=== PATIENT | male | born 1985 | race Caucasian/White ===

== ENCOUNTER 2023-11-08 16:08 | Emergency (ER) | payer MEDICAID, OTHER ==
[~2023-11-08] VITALS: Ht 177.8 cm; Wt 71.8 kg
[2023-11-08] MEDS: SODIUM CHLORIDE 0.9% 1,000 ML IVB ONE (17:00)
[2023-11-08] MEDS: KETOROLAC TROMETH 30 MG/ML 1ML VIAL IV ONE (17:00)
[2023-11-08 17:03] LABS: Urine Bacteria None Seen /hpf (None Seen)
[2023-11-08 17:15] LABS: Urine Blood Negative /uL (Negative); Urine Clarity Clear (Clear); Urine Color Yellow (Yellow); Urine Protein, UAD Negative (Negative); Urine Specific Gravity 1.026 (1.001-1.035); Urine Urobilinogen Normal (Negative); Urine WBC <1 /hpf (0 - 3); Urine pH 5.5 (5.0-9.0)
[2023-11-08 17:59] LABS: Basophils # (auto) 0 10 ^3/uL (0-0.2); Basophils % (auto) 0.7 % (0.0-2.0); Eosinophils # (auto) 0 10 ^3/uL (0-0.8); Eosinophils % (auto) 0.6 % (0.0-7.0); Hematocrit 47.5 % (41.0-53.0); Hemoglobin 15.3 g/dL (13.5-17.5); Lymphocytes # (auto) 1.9 10 ^3/uL (0.4-5.4); Lymphocytes % (auto) 28.3 % (10.0-50.0); Mean Corpuscular Hemoglobin 30.2 pg (28.0-32.0); Mean Corpuscular Hgb Conc. 32.1 g/dL (32.0-36.0); Monocytes # (auto) 0.5 10 ^3/uL (0-1.3); Monocytes % (auto) 7.4 % (0.0-12.0); Neutrophils # (auto) 4.1 10 ^3/uL (1.6-8.6); Red Blood Cells 5.06 10^6/uL (4.5-5.90); White Blood Cell 6.5 10^3/uL (4.4-10.8)
[2023-11-08 18:11] LABS: Alanine Aminotransferase 22 U/L (7-40); Albumin 4.5 g/dL (3.2-4.8); Alkaline Phosphatase 47 U/L (46-116); Anion Gap 4 (5-15); Aspartate Aminotransferase 16 U/L (13-40); Bilirubin, Total 0.5 mg/dL (0.2-1.0); Blood Urea Nitrogen 20 mg/dL (9-23); Calcium 9.8 mg/dL (8.7-10.4); Carbon Dioxide 28 mmol/L (20-30); Chloride 106 mmol/L (98-107); Glucose 94 mg/dL (74-106); Lipase 38 U/L (12-53); Potassium 4.4 mmol/L (3.5-5.1); Sodium 138 mmol/L (136-145); Total Protein 7.4 g/dL (5.7-8.2)
[2023-11-08 18:15] VITALS: BP 164/98; PULSE 79; RESP 18; TEMP 98.9; O2SAT 98
== END 2023-11-08 18:50 | disposition left against medical advice (07) ==
LOC: ER 16:08
DX: R10.9 Unspecified abdominal pain (principal); E78.5 Hyperlipidemia, unspecified; Z98.890 Other specified postprocedural states
CPT/HCPCS: 36415; 80053; 81001; 83690; 85025

== ENCOUNTER 2024-07-21 17:49 | Emergency (ER) | payer MEDICAID ==
[~2024-07-21] VITALS: Ht 177.8 cm; Wt 73.1 kg
[2024-07-21 18:05] VITALS: TEMP 98
[2024-07-21 18:28] LABS: Basophils # (auto) 0 10 ^3/uL (0-0.2); Basophils % (auto) 0.4 % (0.0-2.0); Eosinophils # (auto) 0 10 ^3/uL (0-0.8); Hematocrit 47.3 % (41.0-53.0); Hemoglobin 16.3 g/dL (13.5-17.5); Lymphocytes # (auto) 2.1 10 ^3/uL (0.4-5.4); Lymphocytes % (auto) 21.2 % (10.0-50.0); Mean Corpuscular Hemoglobin 31.1 pg (28.0-32.0); Mean Corpuscular Hgb Conc. 34.3 g/dL (32.0-36.0); Mean Corpuscular Volume 90.5 fL (80.0-100.0); Monocytes # (auto) 0.4 10 ^3/uL (0-1.3); Monocytes % (auto) 4.2 % (0.0-12.0); Neutrophils # (auto) 7.3 10 ^3/uL (1.6-8.6); Neutrophils % (auto) 74.2 % (37.0-80.0); Nucleated Red Blood Cells % 0.1 %; Platelet Count (auto) 294 10^3/uL (140-450); Red Blood Cells 5.23 10^6/uL (4.5-5.90); Red Cell Distribution Width 14.4 % (11.8-14.3); White Blood Cell 9.8 10^3/uL (4.4-10.8)
[2024-07-21 18:39] LABS: Alkaline Phosphatase 58 U/L (46-116); Anion Gap 11 (5-15); Aspartate Aminotransferase 30 U/L (13-40); BUN/Creatinine Ratio 14.2 (10.0-20.0); Bilirubin, Total 0.7 mg/dL (0.2-1.0); Blood Urea Nitrogen 16 mg/dL (9-23); Carbon Dioxide 23 mmol/L (20-31); Chloride 101 mmol/L (98-107); Potassium 3.6 mmol/L (3.5-5.1)
[2024-07-21 18:45] LABS: Alanine Aminotransferase 50 U/L (7-40); Albumin 5.4 g/dL (3.2-4.8); Calcium 10.4 mg/dL (8.7-10.4); Glucose 154 mg/dL (74-106); Sodium 135 mmol/L (136-145); Total Protein 8.2 g/dL (5.7-8.2)
--- NOTE | 2024-07-21 19:12 | ED.PDOC ---
HPI Comments Thong Marquis is a 39-year-old male patient who presents to the ED with chief complaint of intermittent dull pressure-like retrosternal chest pain which started approximately two weeks ago in variable functional class (he does say that while he rest he does not have any symptoms, but the chest pain shows up randomly it respectively of the functional class) associated with palpitations, dyspnea, tremors and dizziness. Symptoms got worse after he drank six beers yesterday, prompting his visit today to the ED. denies syncope, nausea, vomiting, diarrhea, bleeding, dysuria, fever, chills, recent upper respiratory infection, recent travel, sick contacts and motor or sensory deficits. Past medical history: Dyslipidemia treated with nonpharmacological measures Surgical history: Denies Family history: Father of NH at age of 70 Social history: Lives in [place] alone, next of kin mother. Occasional binge alcohol consumption (he says he drinks normally 2 times a week and for each event he drinks six beers). Denies current tobacco and other drug abuse. Allergies: Denies Home medication: Multivitamins and fish oil. Chief Complaint: Palpitations Time Seen by MD: 18:30 Primary Care Provider: eren Allergies: Coded Allergies: NO KNOWN ALLERGIES (Unverified , 11/08/23) Mode of Arrival: Ambulatory Past Medical History PAST MEDICAL HISTORY: High Lipids Family History Family History: Reviewed,noncontributory to illness, Family hx of heart brionna Social History Smoker: Non-Smoker Alcohol: Denies ETOH Use Drugs: Denies Drug Use Lives In: Home Physical Exam General Appearance: No Apparent Distress, Normal HEENT: Normal ENT Inspection, Pharynx Normal, TMs Normal Neck: Full Range of Motion, Non-Tender, Normal, Normal Inspection Respiratory: Chest Non-Tender, Lungs Clear, No Accessory Muscle Use, No Respiratory Distress, Normal Breath Sounds Cardiovascular: No Edema, No JVD, No Murmur, No Gallop, Normal Peripheral Pulses, Regular Rate/Rhythm Breast Exam: Deferred Gastrointestinal: No Organomegaly, Non Tender, No Pulsatile Mass, Normal Bowel Sounds, Soft Genitalia: Deferred Pelvic: Deferred Rectal: Deferred Extremities: No calf tenderness, Normal capillary refill, Normal inspection, Normal range of motion, Non-tender, No pedal edema Neurologic: Alert, development mgr II-XII nml as Tested, No Motor Deficits, Normal Affect, Normal Mood, No Sensory Deficits Cerebellar Function: Normal Reflexes: Normal Skin: Dry, Normal Color, Warm Lymphatic: No Adenopathy EKG EKG : Comments First EKG shows sinus tachycardia at 110 beats per minute, 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 Was a procedure done?: No CP Differential Dx Differential Diagnosis: A-fib, A-Flutter, Angina, Electrolyte Disorder, Heart Failure, Hyperthyroidism, NH, Pulmonary Embolus, Renal Failure, V-Fib, V-Tach X-Ray, Labs, Meds, VS Vital Signs Date Time Temp Pulse Resp B/P (MAP) Pulse Ox O2 Delivery O2 Flow Rate FiO2 07/21/24 18:57 79 07/21/24 18:05 98.0 119 17 160/97 (118) 99 07/21/24 17:56 118 Lab Test 07/21/24 21:29 07/21/24 20:41 07/21/24 19:16 07/21/24 18:00 Range/Units Urine Color Pending Urine Clarity Pending Urine pH Pending Urine Specific [place] Pending Urine Protein Pending Urine Ketones Pending Urine Blood Pending Urine Nitrite Pending Urine Bilirubin Pending Urine Urobilinogen Pending Urine Leukocyte Esterase Pending Urine RBC Pending Urine Microscopic WBC Pending Urine Squamous Epithelial Cells Pending Urine Bacteria Pending Urine Glucose Pending Urine Opiates Screen Pending Urine Fentanyl Screen Pending Urine Barbiturates Screen Pending Urine Phencyclidine Screen Pending Urine Amphetamines Screen Pending Urine Benzodiazepines Screen Pending Urine Cocaine Screen Pending Urine Cannabinoids Screen Pending Lactic Acid Level 1.4 2.1 *H 0.4-2.0 mmol/L Troponin I High Sensitivity < 3 L < 3 L < 3 L </=54 ng/L Prothrombin Time 10.5 9.3-11.8 sec Prothrombin Time INR 0.99 0.9-1.15 Activated Partial Thromboplast Time 23.0 L 24.5-34.5 SEC D-Dimer, Quantitative 0.31 0.0-0.49 mg/L FEU Ammonia < 10 L 11-32 umol/L White Blood Count 9.8 4.4-10.8 10^3/uL Red Blood Count 5.23 4.5-5.90 10^6/uL Hemoglobin 16.3 13.5-17.5 g/dL Hematocrit 47.3 41.0-53.0 % Mean Corpuscular Volume 90.5 80.0-100.0 fL Mean Corpuscular Hemoglobin 31.1 28.0-32.0 pg Mean Corpuscular Hemoglobin Concent 34.3 32.0-36.0 g/dL Red Cell Distribution Width 14.4 H 11.8-14.3 % Platelet Count 294 140-450 10^3/uL Mean Platelet Volume 7.3 6.9-10.8 fL Neutrophils (%) (Auto) 74.2 37.0-80.0 % Lymphocytes (%) (Auto) 21.2 10.0-50.0 % Monocytes (%) (Auto) 4.2 0.0-12.0 % Eosinophils (%) (Auto) 0.0 0.0-7.0 % Basophils (%) (Auto) 0.4 0.0-2.0 % Neutrophils # (Auto) 7.3 1.6-8.6 10 ^3/uL Lymphocytes # (Auto) 2.1 0.4-5.4 10 ^3/uL Monocytes # (Auto) 0.4 0-1.3 10 ^3/uL Eosinophils # (Auto) 0 0-0.8 10 ^3/uL Basophils # (Auto) 0 0-0.2 10 ^3/uL Nucleated Red Blood Cells 0.1 % Sodium Level 135 L 136-145 mmol/L Potassium Level 3.6 3.5-5.1 mmol/L Chloride Level 101 98-107 mmol/L Carbon Dioxide Level 23 20-31 mmol/L Anion Gap 11 5-15 Blood Urea Nitrogen 16 9-23 mg/dL Creatinine 1.13 0.700-1.30 mg/dL Glomerular Filtration Rate Calc 84 >90 mL/min BUN/Creatinine Ratio 14.2 10.0-20.0 Serum Glucose 154 H 74-106 mg/dL POC Glucose 154 H 70-106 mg/dl Calcium Level 10.4 8.7-10.4 mg/dL Phosphorus Level 4.0 2.4-5.1 mg/dL Magnesium Level 2.3 1.6-2.6 mg/dL Total Bilirubin 0.7 0.2-1.0 mg/dL Aspartate Amino Transferase (AST) 30 13-40 U/L Alanine Aminotransferase (ALT) 50 H 7-40 U/L Alkaline Phosphatase 58 46-116 U/L Total Protein 8.2 5.7-8.2 g/dL Albumin 5.4 H 3.2-4.8 g/dL Thyroid Stimulating Hormone (TSH) 0.47 L 0.55-4.78 uIU/mL Free Thyroxine (T4) Calculated 1.18 0.89-1.76 ng/dL Free Triiodothyronine (T3) pg/mL 3.19 2.3-4.2 pg/mL X-Ray, Labs, Meds, VS Comment Reviewed laboratory workup (hyperglycemia on 154, lactic acid 2.1 with repeat 1.4, TSH 0.47 with normal free T3 and T4, D-dimer was negative, troponin <3 x3, ALT 50), chest x-ray showed right base atelectasis. Time of 1ST Reevaluation: 21:35 Reevaluation 1ST: Improved Patient Education/Counseling: Diagnosis, Treatment, Prognosis, Need For Follow Up Family Education/Counseling: Diagnosis, Treatment, Prognosis, Need For Follow Up Departure 1 Departure Time of Disposition: 21:35 Impression: Primary Impression: Palpitations Disposition: 01 HOME / SELF CARE / HOMELESS Condition: Stable Additional Instructions: Reviewed vital signs, laboratory work up, chest x-ray and EKG. Pending urine analysis. Abnormal laboratory workup includes hyperglycemia (154), lactic acid (2.1 with repeat 1.4), TSH (0.47 with normal free T3 and T4) and ALT 50. Troponin in three opportunities was negative, D-dimer was negative. 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 Patient currently is asymptomatic, tolerated p.o. intake. Patient hemodynamically stable, asymptomatic, in condition to be discharged eusebia e. Was granted under optimal medical therapy (indicated increase p.o. intake of water), gave her advice on healthy lifestyle habits (avoid binge drinking) and follow up with PCP to evaluate hyperglycemia in sick thyroid syndrome. Critical Care Note Critical Care Time?: No Stability Stability form required: No Heart Score Heart Score: Heart Score Response (Comments) Value History Slightly Suspicious 0 EKG Normal 0 Age <45 0 Risk Factors 1 or 2 risk factors 1 Troponin Normal limit 0 Total 1 [facility] RESIDENT Jul 21, 2024 19:12
--- NOTE | 2024-07-21 19:17 | ECG ---
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
--- NOTE | 2024-07-21 19:17 | ECG ---
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
--- NOTE | 2024-07-21 19:34 | DVH ---
EXAMINATION: AP portable chest radiograph CLINICAL HISTORY: Chest pain COMPARISON: None FINDINGS: Right basilar opacity with blunting of the right costophrenic angle. Left lung appears relatively reina ar. The cardiomediastinal silhouette appears within normal limits given technique. No sizable pneumot horax. IMPRESSION: Right basilar atelectasis/effusion. Underlying consolidation not excluded.
[2024-07-21 19:44] LABS: INR 0.99 (0.9-1.15); Prothrombin Time 10.5 sec (9.3-11.8)
[2024-07-21 19:55] LABS: Magnesium 2.3 mg/dL (1.6-2.6)
[2024-07-21 20:02] LABS: Lactic Acid w/Reflex 2.1 mmol/L (0.4-2.0)
[2024-07-21 21:06] LABS: Free T3 3.19 pg/mL (2.3-4.2); Free T4 (Free Thyroxine) 1.18 ng/dL (0.89-1.76)
[2024-07-21 21:31] LABS: Urine Bacteria None Seen /hpf (None Seen)
[2024-07-21 21:36] LABS: Urine Blood Negative /uL (Negative); Urine Clarity Clear (Clear); Urine Color Colorless (Yellow); Urine Protein, UAD Negative (Negative); Urine Specific Gravity 1.008 (1.001-1.035); Urine Squamous Epithelial Cell None Seen /hpf (<5); Urine Urobilinogen Normal (Negative)
[2024-07-21] MEDS: SODIUM CHLORIDE 0.9% 500 ML IV ONE (21:39)
[2024-07-21 21:40] VITALS: PULSE 101; RESP 18; O2SAT 99
[2024-07-21 21:52] LABS: Amphetamine Screen, Urine Neg (NEGATIVE); Barbiturate Scree,Urine Neg (NEGATIVE); Benzodiazephine Screen, Urine Neg (NEGATIVE); Cannabinoid Screen, Urine Pos (NEGATIVE); Cocaine Screen, Urine Neg (NEGATIVE); Opiate Scree,Urine Neg (NEGATIVE); Phencyclidine Screen, Urine Neg (NEGATIVE)
[2024-07-21 21:55] VITALS: BP 113/84; PULSE 78; RESP 15; O2SAT 100
== END 2024-07-21 22:12 | disposition home or self-care (01) ==
LOC: ER 17:49
DX: R00.2 Palpitations (principal); E78.5 Hyperlipidemia, unspecified; Z88.8 Allergy status to other drugs, medicaments and biological substances
CPT/HCPCS: 36415; 71045; 80053; 80307; 81001; 82140; 82962; 83605; 83735; 84100; 84439; 84443; 84481; 84484; 85025; 85379; 85610; 85730; 93005; 96360; 99285; J7030